=== PATIENT | female | born 1950 | race Caucasian/White ===

== ENCOUNTER 2017-12-14 14:56 | Inpatient (IN) | payer MEDICARE, MEDICAID ==
[~2017-12-14] VITALS: Ht 162.6 cm; Wt 81.2 kg
[~2017-12-14 14:56] MED LIST: ASPI81TA87 PO; LAMO100 PO; MIRT30 PO; OMEP20 PO; RISP3TAB44 PO; SENN8.6T90 PO
[2017-12-14 16:07] VITALS: BP 91/51
[2017-12-14 16:53] VITALS: BP 72/60
[2017-12-14] MEDS ORDERED: PNEUMOCOCCAL VACCINE POLYVALENT 0.5 ML VIAL [PPSV23] IM ONE (17:30)
[2017-12-14] MEDS ORDERED: PETROLATUM,WHITE 71 GM JELLY TP PRN (20:15)
[2017-12-14] MEDS ORDERED: MAG HYDROX/AL HYDROX/SIMETH ES 30 ML SUSPENSION UDCUP PO PRN (20:15)
[2017-12-14] MEDS ORDERED: LOPERAMIDE HCL 2 MG CAPSULE PO PRN (20:15)
[2017-12-14] MEDS ORDERED: BACITRACIN 28.4 GM OINTMENT TP PRN (20:15)
[2017-12-14] MEDS ORDERED: ONDANSETRON HCL 4 MG TABLET PO PRN (20:15)
[2017-12-14] MEDS ORDERED: MAGNESIUM HYDROXIDE SUSPENSION 30 ML UDCUP PO PRN (20:15)
[2017-12-14] MEDS ORDERED: BENZOCAINE/MENTHOL LOZENGE MM PRN (20:15)
[2017-12-14] MEDS ORDERED: ALBUTEROL SULFATE HFA 90 MCG/PUFF 8 GM INHALER IH PRN (20:15)
[2017-12-14] MEDS ORDERED: CloNIDine HCL 0.1 MG TABLET PO PRN (20:15)
[2017-12-15] MEDS: ZOLPIDEM TARTRATE 10 MG TABLET PO PRN ×2 (01:14→20:49)
[2017-12-15] MEDS: IBUPROFEN 600 MG TABLET PO PRN (01:14)
[2017-12-15 04:21] VITALS: BP 106/77
[2017-12-15 08:31] VITALS: BP 122/68
[2017-12-15] MEDS ORDERED: RisperiDONE 2 MG TABLET PO SCH (09:00)
[2017-12-15 09:08] LABS: BASOPHILS % (AUTO) 0.8 % (0.0-2.0); EOSINOPHILS % (AUTO) 4.7 % (1.0-6.0); HEMATOCRIT 35.3 % (36-46); HEMOGLOBIN 12.7 g/dL (12.0-16.0); LYMPHOCYTES # (AUTO) 1.9 K/uL (1.0-4.8); LYMPHOCYTES % (AUTO) 33.9 % (22.0-44.0); MEAN CORPUSCULAR HEMOGLOBIN 33.1 pg (26.0-34.0); MEAN CORPUSCULAR VOLUME 92 fL (80-100); MONOCYTES # (AUTO) 0.3 K/uL (0.1-1.0); MONOCYTES % (AUTO) 5.6 % (2.0-9.0); NEUTROPHILS # (AUTO) 3.1 K/uL (1.8-7.7); PLATELET COUNT (AUTO) 189 K/uL (150-450); RED BLOOD CELL COUNT(AUTO) 3.84 MIL/uL (4.00-5.20); RED CELL DISTRIBUTION WIDTH 13.8 % (11.5-14.5)
[2017-12-15] MEDS: OMEPRAZOLE 20 MG CAPSULE PO SCH (09:22)
[2017-12-15] MEDS: RisperiDONE 3 MG TABLET PO SCH ×2 (09:23→16:13)
[2017-12-15] MEDS: DOCUSATE SODIUM 100 MG CAPSULE PO SCH (09:23)
[2017-12-15] MEDS: NYSTATIN 15 GM POWDER BOTTLE TP SCH ×2 (09:23→17:11)
[2017-12-15 09:58] LABS: HEMOGLOBIN A1C 5.7 % (4.5-6.2)
[2017-12-15 10:08] LABS: ALBUMIN 3.6 g/dL (3.4-5.0); BILIRUBIN,TOTAL 0.3 mg/dL (0.1-1.0); CALCIUM, TOTAL 8.7 mg/dL (8.8-10.5); CREATININE 1.01 mg/dL (0.60-1.30); FREE T4 (FREE THYROXINE) 0.98 ng/dL (0.76-1.46); POTASSIUM 4.1 mmol/L (3.5-5.1); THYROID STIMULATING HORMONE 0.74 uIU/mL (0.36-3.74); TOTAL PROTEIN, SERUM 6.8 g/dL (6.4-8.2)
[2017-12-15 16:08] VITALS: BP 119/66
[2017-12-15 16:12] VITALS: BP 119/66
[2017-12-15] MEDS: ACETAMINOPHEN 325 MG TABLET PO PRN (16:14)
[2017-12-15] MEDS: MIRTAZAPINE 30 MG TABLET PO SCH (20:49)
[2017-12-16] MEDS: ACETAMINOPHEN 325 MG TABLET PO PRN ×2 (06:48→16:51)
[2017-12-16 08:07] VITALS: BP 106/63
[2017-12-16] MEDS: OMEPRAZOLE 20 MG CAPSULE PO SCH (08:49)
[2017-12-16] MEDS: RisperiDONE 3 MG TABLET PO SCH ×2 (08:49→17:38)
[2017-12-16] MEDS: DOCUSATE SODIUM 100 MG CAPSULE PO SCH (08:49)
[2017-12-16] MEDS: NYSTATIN 15 GM POWDER BOTTLE TP SCH ×2 (08:51→17:38)
[2017-12-16] MEDS: IBUPROFEN 600 MG TABLET PO PRN (14:40)
[2017-12-16 16:05] VITALS: BP 128/75
[2017-12-16 16:50] VITALS: BP 122/76
[2017-12-16] MEDS: LORazepam 2 MG TABLET PO PRN (17:00)
[2017-12-16] MEDS: ZOLPIDEM TARTRATE 10 MG TABLET PO PRN (21:43)
[2017-12-16] MEDS: MIRTAZAPINE 30 MG TABLET PO SCH (21:44)
[2017-12-17 01:22] VITALS: BP 124/66
[2017-12-17 07:49] VITALS: BP 133/70
[2017-12-17 08:03] VITALS: BP 133/70
[2017-12-17] MEDS: NYSTATIN 15 GM POWDER BOTTLE TP SCH ×2 (08:47→17:33)
[2017-12-17] MEDS: RisperiDONE 3 MG TABLET PO SCH ×2 (08:49→17:34)
[2017-12-17] MEDS: DOCUSATE SODIUM 100 MG CAPSULE PO SCH (08:49)
[2017-12-17] MEDS: OMEPRAZOLE 20 MG CAPSULE PO SCH (08:49)
[2017-12-17 16:05] VITALS: BP 104/61
[2017-12-17] MEDS: LORazepam 2 MG TABLET PO PRN (17:34)
[2017-12-17] MEDS: IBUPROFEN 600 MG TABLET PO PRN (17:34)
[2017-12-17] MEDS: MIRTAZAPINE 30 MG TABLET PO SCH (21:27)
[2017-12-18 07:02] VITALS: BP 149/70
[2017-12-18 08:07] VITALS: BP 96/60
[2017-12-18] MEDS: NYSTATIN 15 GM POWDER BOTTLE TP SCH ×2 (08:22→16:19)
[2017-12-18] MEDS: LORazepam 2 MG TABLET PO PRN ×2 (08:22→17:02)
[2017-12-18] MEDS: DOCUSATE SODIUM 100 MG CAPSULE PO SCH (08:22)
[2017-12-18] MEDS: RisperiDONE 3 MG TABLET PO SCH ×2 (08:23→16:19)
[2017-12-18] MEDS: HALOPERIDOL 5 MG TABLET PO PRN ×2 (08:23→17:53)
[2017-12-18] MEDS: OMEPRAZOLE 20 MG CAPSULE PO SCH (08:23)
[2017-12-18 16:10] VITALS: BP 113/62
[2017-12-18] MEDS: ACETAMINOPHEN 325 MG TABLET PO PRN (16:20)
[2017-12-18 17:20] VITALS: BP 112/75
[2017-12-18] MEDS: MIRTAZAPINE 30 MG TABLET PO SCH (21:14)
[2017-12-19 06:31] VITALS: BP 117/68
[2017-12-19] MEDS: RisperiDONE 3 MG TABLET PO SCH ×2 (08:03→17:21)
[2017-12-19] MEDS: NYSTATIN 15 GM POWDER BOTTLE TP SCH ×2 (08:03→17:21)
[2017-12-19] MEDS: OMEPRAZOLE 20 MG CAPSULE PO SCH (08:03)
[2017-12-19] MEDS: HALOPERIDOL 5 MG TABLET PO PRN (08:03)
[2017-12-19] MEDS: LORazepam 2 MG TABLET PO PRN (08:03)
[2017-12-19] MEDS: DOCUSATE SODIUM 100 MG CAPSULE PO SCH (08:03)
[2017-12-19 08:55] LABS: ANION GAP 7 mmol/L (8-16); CALCIUM, TOTAL 8.8 mg/dL (8.8-10.5); CARBON DIOXIDE 30 mmol/L (22-29); CHLORIDE 105 mmol/L (98-107); CREATININE 0.86 mg/dL (0.60-1.30); GLOMERULAR FILTR. RATE CALC > 60 mL/min (>60); GLUCOSE,RANDOM 103 mg/dL (70-110); POTASSIUM 4.3 mmol/L (3.5-5.1); SODIUM SERUM 142 mmol/L (136-145); UREA NITROGEN, BLOOD 18 mg/dL (7-18)
[2017-12-19 09:22] VITALS: BP 115/65
[2017-12-19 16:05] VITALS: BP 115/70
[2017-12-19] MEDS: MIRTAZAPINE 30 MG TABLET PO SCH (21:35)
[2017-12-20 04:43] VITALS: BP 117/68
[2017-12-20] MEDS: IBUPROFEN 600 MG TABLET PO PRN (05:48)
[2017-12-20 08:09] VITALS: BP 127/69
[2017-12-20] MEDS: DOCUSATE SODIUM 100 MG CAPSULE PO SCH (09:08)
[2017-12-20] MEDS: OMEPRAZOLE 20 MG CAPSULE PO SCH (09:08)
[2017-12-20] MEDS: NYSTATIN 15 GM POWDER BOTTLE TP SCH ×2 (09:09→16:12)
[2017-12-20] MEDS: LORazepam 2 MG TABLET PO PRN ×2 (09:09→16:12)
[2017-12-20] MEDS: HALOPERIDOL 5 MG TABLET PO PRN ×2 (09:09→16:12)
[2017-12-20] MEDS: RisperiDONE 3 MG TABLET PO SCH ×2 (09:09→16:12)
[2017-12-20] MEDS: ACETAMINOPHEN 325 MG TABLET PO PRN (12:56)
[2017-12-20 16:20] VITALS: BP 119/60
[2017-12-20] MEDS: MIRTAZAPINE 30 MG TABLET PO SCH (20:34)
[2017-12-21 07:07] VITALS: BP 124/73
[2017-12-21 08:28] VITALS: BP 97/68
[2017-12-21] MEDS: OMEPRAZOLE 20 MG CAPSULE PO SCH (08:42)
[2017-12-21] MEDS: NYSTATIN 15 GM POWDER BOTTLE TP SCH ×2 (08:42→16:14)
[2017-12-21] MEDS: DOCUSATE SODIUM 100 MG CAPSULE PO SCH (08:42)
[2017-12-21] MEDS: RisperiDONE 3 MG TABLET PO SCH ×2 (08:42→16:14)
[2017-12-21] MEDS: IBUPROFEN 600 MG TABLET PO PRN (10:50)
[2017-12-21 10:51] VITALS: BP 110/70
[2017-12-21 16:05] VITALS: BP 110/70
[2017-12-21] MEDS: HALOPERIDOL 5 MG TABLET PO PRN (16:13)
[2017-12-21] MEDS: LORazepam 2 MG TABLET PO PRN (16:13)
[2017-12-21] MEDS: MIRTAZAPINE 30 MG TABLET PO SCH (20:56)
[2017-12-22 01:35] VITALS: BP 125/75
[2017-12-22 08:47] VITALS: BP 122/78
[2017-12-22] MEDS: RisperiDONE 3 MG TABLET PO SCH ×2 (08:55→16:30)
[2017-12-22] MEDS: DOCUSATE SODIUM 100 MG CAPSULE PO SCH (08:55)
[2017-12-22] MEDS: OMEPRAZOLE 20 MG CAPSULE PO SCH (08:55)
[2017-12-22] MEDS: NYSTATIN 15 GM POWDER BOTTLE TP SCH ×2 (08:55→16:30)
[2017-12-22 16:17] VITALS: BP 106/69
[2017-12-22] MEDS: LORazepam 2 MG TABLET PO PRN (18:21)
[2017-12-22] MEDS: ACETAMINOPHEN 325 MG TABLET PO PRN (20:19)
[2017-12-22] MEDS: MIRTAZAPINE 30 MG TABLET PO SCH (20:19)
[2017-12-23 06:17] VITALS: BP 104/62
[2017-12-23] MEDS: RisperiDONE 3 MG TABLET PO SCH ×2 (08:03→16:10)
[2017-12-23] MEDS: OMEPRAZOLE 20 MG CAPSULE PO SCH (08:03)
[2017-12-23] MEDS: DOCUSATE SODIUM 100 MG CAPSULE PO SCH (08:03)
[2017-12-23] MEDS: LORazepam 2 MG TABLET PO PRN (08:03)
[2017-12-23] MEDS: NYSTATIN 15 GM POWDER BOTTLE TP SCH ×2 (08:03→16:11)
[2017-12-23 08:36] VITALS: BP 106/72
[2017-12-23] MEDS: BENZTROPINE MESYLATE 0.5 MG TABLET PO SCH ×2 (12:43→16:10)
[2017-12-23 16:25] VITALS: BP 115/87
[2017-12-23] MEDS: MIRTAZAPINE 30 MG TABLET PO SCH (20:21)
[2017-12-24 06:49] VITALS: BP 110/68
[2017-12-24 06:50] VITALS: BP 114/68
[2017-12-24] MEDS: OMEPRAZOLE 20 MG CAPSULE PO SCH (08:22)
[2017-12-24] MEDS: RisperiDONE 3 MG TABLET PO SCH (08:22)
[2017-12-24] MEDS: NYSTATIN 15 GM POWDER BOTTLE TP SCH (08:22)
[2017-12-24] MEDS: DOCUSATE SODIUM 100 MG CAPSULE PO SCH (08:22)
[2017-12-24] MEDS: BENZTROPINE MESYLATE 0.5 MG TABLET PO SCH (08:22)
[2017-12-24] MEDS: LORazepam 2 MG TABLET PO PRN (08:22)
[2017-12-24 08:35] VITALS: BP 105/72
[2017-12-24] MEDS ORDERED: MIRT30 PO (09:39)
[2017-12-24] MEDS ORDERED: BENZ0.5T44 PO (09:39)
[2017-12-24] MEDS ORDERED: DSS100 PO (09:50)
[2017-12-24] MEDS ORDERED: NYST15PO3 TP (09:50)
== END 2017-12-24 14:03 | disposition home or self-care (01) | DRG 750 ==
LOC: B3A 16:17
PROVIDERS: ADMIT Psychiatry & Neurology Psychiatry; ATTEND Psychiatry & Neurology Psychiatry
DX: F25.1 Schizoaffective disorder, depressive type (principal); I10 Essential (primary) hypertension; F41.9 Anxiety disorder, unspecified; G47.00 Insomnia, unspecified; K21.9 Gastro-esophageal reflux disease without esophagitis; K59.00 Constipation, unspecified; M19.90 Unspecified osteoarthritis, unspecified site; Z88.8 Allergy status to other drugs, medicaments and biological substances
CPT/HCPCS: 83036; 84439; 84443; 90471; J3535

== ENCOUNTER 2025-06-24 14:24 | Inpatient (IN) | payer MEDICARE, MEDICAID ==
[~2025-06-24] VITALS: Ht 160 cm; Wt 77.0 kg
[~2025-06-24 14:24] MED LIST changes: -ASPI81TA87 PO; +BENZ0.5T52 PO; +DSS100 PO; -LAMO100 PO; +MIRT-149 PO; -MIRT30 PO; +NYST15PO3 TP; +OMEP-148 PO; -OMEP20 PO; -SENN8.6T90 PO
[2025-06-24 14:46] LABS: PLATELET COUNT (AUTO) 187 K/uL (150-450); RED BLOOD CELL COUNT(AUTO) 3.83 MIL/uL (4.00-5.20); RED CELL DISTRIBUTION WIDTH 14.3 % (11.5-14.5); WHITE BLOOD COUNT (AUTO) 4.1 K/uL (4.5-11.0)
[2025-06-24 14:54] LABS: CALCIUM, TOTAL 9.1 mg/dL (8.8-10.5); CREATININE 0.73 mg/dL (0.60-1.30); GLOMERULAR FILTR. RATE CALC > 60 mL/min (>60); GLUCOSE,RANDOM 99 mg/dL (70-110); SODIUM SERUM 142 mmol/L (136-145); UREA NITROGEN, BLOOD 13 mg/dL (7-18)
[2025-06-24 16:22] LABS: COVID AG,FIA SOURCE NASAL SWAB
[2025-06-24 16:48] LABS: SARS-COV2 (COVID) ANTIGEN,FIA Negative (Negative)
[2025-06-24] MEDS ORDERED: ZOLPIDEM TARTRATE 10 MG TABLET PO PRN (17:15)
[2025-06-24 18:51] LABS: APPEARANCE,URINE CLEAR (CLEAR); GLUCOSE, URINE (UA) NEGATIVE (NEGATIVE); LEUKOCYTE ESTERASE ,URINE MODERATE (NEGATIVE); NITRATE,URINE POSITIVE (NEGATIVE); OCCULT BLOOD,URINE NEGATIVE (NEGATIVE); PH,URINE DRUG SCREEN 5.5 (5.0-8.0); SPECIFIC GRAVITIY, URINE 1.037 (1.003-1.030)
[2025-06-24 18:55] LABS: ALCOHOL, URINE DRUG SCREEN NEGATIVE (NEGATIVE); AMPHET/METH SCREEN,URINE NEGATIVE (NEGATIVE); BARBITURATE SCREEN, URINE NEGATIVE (NEGATIVE); CANNABINOID SCREEN,URINE NEGATIVE (NEGATIVE); COCAINE SCREEN,URINE NEGATIVE (NEGATIVE); METHADONE SCREEN, URINE NEGATIVE (NEGATIVE)
[2025-06-24 19:48] LABS: CALCIUM OXALATE CRYSTALS,UR Few /LPF (None Seen); SQUAMOUS EPITHELIAL CELL,UR Few /LPF (None Seen)
[2025-06-24] MEDS: CEPHALEXIN MONOHYDRATE 500 MG CAPSULE PO ONE (20:31)
[2025-06-25] MEDS ORDERED: PETROLATUM,WHITE 28 GM JELLY TP PRN (01:30)
[2025-06-25] MEDS ORDERED: ONDANSETRON 4 MG TABLET PO PRN (01:30)
[2025-06-25] MEDS ORDERED: NICOTINE 14 MG/24 HOUR PATCH TD PRN (01:30)
[2025-06-25] MEDS ORDERED: ALBUTEROL SULFATE HFA 90 MCG/PUFF 8 GM INHALER IH PRN (01:30)
[2025-06-25] MEDS ORDERED: GuaiFENesin/D-METHORPHAN [SUGAR-FREE] 200-20MG/10 ML SYRUP UDCUP PO PRN (01:30)
[2025-06-25] MEDS ORDERED: IBUPROFEN 400 MG TABLET PO PRN (01:30)
[2025-06-25] MEDS ORDERED: DOCUSATE SODIUM 100 MG CAPSULE PO PRN (01:30)
[2025-06-25] MEDS ORDERED: MAG HYDROX/ALUMINUM HYD/SIMETH ES 30 ML SUSPENSION UDCUP PO PRN (01:30)
[2025-06-25] MEDS ORDERED: MAGNESIUM HYDROXIDE SUSPENSION 30 ML UDCUP PO PRN (01:30)
[2025-06-25] MEDS ORDERED: LOPERAMIDE HCL 2 MG CAPSULE PO PRN (01:30)
[2025-06-25 02:19] VITALS: BP 113/67; PULSE 74; RESP 18; TEMP 98.2; O2SAT 99
[2025-06-25] MEDS: CEPHALEXIN MONOHYDRATE 500 MG CAPSULE PO SCH (08:31)
[2025-06-25 12:50] VITALS: BP 99/59; PULSE 77; RESP 16; TEMP 98; O2SAT 97
[2025-06-25] MEDS: MEMANTINE HCL 5 MG TABLET PO SCH (12:59)
[2025-06-25] MEDS: ACETAMINOPHEN 325 MG TABLET PO PRN (12:59)
[2025-06-25] MEDS: SERTRALINE HCL 50 MG TABLET PO SCH (12:59)
[2025-06-25 13:59] VITALS: RESP 16
[2025-06-25] MEDS: BENZTROPINE MESYLATE 0.5 MG TABLET PO SCH (16:06)
[2025-06-25 20:32] VITALS: RESP 18
[2025-06-25 21:01] VITALS: RESP 18
[2025-06-25 21:34] VITALS: RESP 18
[2025-06-26 11:18] VITALS: BP 106/54; PULSE 79; RESP 18; TEMP 98; O2SAT 96
[2025-06-26 11:50] LABS: PLATELET COUNT (AUTO) 192 K/uL (150-450); RED BLOOD CELL COUNT(AUTO) 4.02 MIL/uL (4.00-5.20); RED CELL DISTRIBUTION WIDTH 14.4 % (11.5-14.5); WHITE BLOOD COUNT (AUTO) 6.2 K/uL (4.5-11.0)
[2025-06-26 11:58] LABS: BAND NEUTROPHILS % (MANUAL) 0 % (0-5)
[2025-06-26 12:04] LABS: ASPARTATE AMINOTRANSFERASE 26 U/L (15-37); CALCIUM, TOTAL 8.9 mg/dL (8.8-10.5); CHOL/HDL RATIO 2.8 (3.9-5.7); CREATININE 0.66 mg/dL (0.60-1.30); GLOMERULAR FILTR. RATE CALC > 60 mL/min (>60); GLUCOSE,RANDOM 99 mg/dL (70-110); LDL CHOL (CALC.) 59 mg/dL (0-130); SODIUM SERUM 140 mmol/L (136-145); TOTAL PROTEIN, SERUM 6.9 g/dL (6.4-8.2); UREA NITROGEN, BLOOD 15 mg/dL (7-18)
[2025-06-26 12:38] LABS: BASOPHILS % (MANUAL) 1 % (0-2); LYMPHOCYTES % (MANUAL) 29 % (22-44); MONOCYTES % (MANUAL) 5 % (2-9); SEGMENTED NEUTROPHILS % 65 % (40-70)
[2025-06-26 21:04] VITALS: BP 113/57; PULSE 75; RESP 18; TEMP 97.5; O2SAT 96
[2025-06-27 08:12] VITALS: BP 110/69; PULSE 58; RESP 18; O2SAT 96
[2025-06-27 20:18] VITALS: RESP 18
[2025-06-28 08:04] VITALS: BP 108/69; PULSE 67; RESP 17; TEMP 97.5; O2SAT 97
[2025-06-28 20:30] VITALS: BP 121/58; PULSE 68; RESP 18; TEMP 98.2; O2SAT 97
[2025-06-29 09:31] VITALS: BP 105/58; PULSE 66; RESP 18; O2SAT 97
[2025-06-29 21:07] VITALS: BP 96/58; PULSE 67; RESP 18; TEMP 98.6; O2SAT 96
[2025-06-30 09:34] VITALS: BP 107/63; PULSE 58; RESP 18; TEMP 98.3
[2025-07-01 09:59] VITALS: BP 93/75; PULSE 68; RESP 18; TEMP 98.4
[2025-07-01 20:30] VITALS: BP 116/61; PULSE 71; RESP 19; TEMP 98; O2SAT 98
[2025-07-02 09:33] VITALS: BP 107/66; PULSE 60; RESP 16; TEMP 98; O2SAT 95
[2025-07-02] MEDS ORDERED: LAMO-24 PO (13:33)
[2025-07-02] MEDS ORDERED: MEMA5TAB41 PO (13:33)
[2025-07-02] MEDS ORDERED: QUET25TA PO (13:34)
[2025-07-02] MEDS ORDERED: SERT-158 PO (13:37)
== END 2025-07-02 16:59 | DRG 885 ==
LOC: EMS 14:26 → 3EI 06-25 00:14
PROVIDERS: ADMIT Psychiatry & Neurology Child & Adolescent Psychiatry; ATTEND Psychiatry & Neurology Child & Adolescent Psychiatry
PROC: GZ56ZZZ Individual Psychotherapy, Supportive (ICD-10-PCS; principal; 2025-06-25)
DX: F29 Unspecified psychosis not due to a substance or known physiological condition (principal); F03.90 Unspecified dementia, unspecified severity, without behavioral disturbance, psychotic disturbance, mood disturbance, and anxiety; N39.0 Urinary tract infection, site not specified; F20.9 Schizophrenia, unspecified; I10 Essential (primary) hypertension; Z20.822 Contact with and (suspected) exposure to COVID-19; K21.9 Gastro-esophageal reflux disease without esophagitis; F41.9 Anxiety disorder, unspecified; G47.00 Insomnia, unspecified; Z88.8 Allergy status to other drugs, medicaments and biological substances; Z79.899 Other long term (current) drug therapy
CPT/HCPCS: 80048; 80053; 80061; 80307; 81001; 83036; 84443; 85025; 87077; 87081; 87086; 87186; 97162; 97167; 97535; 99285; G0480; J3535